=== PATIENT | female | born 1960 | race Caucasian/White ===

== ENCOUNTER 2024-02-18 09:52 | Outpatient (CLI) | payer OTHER, SELFPAY ==
--- NOTE | 2024-02-18 10:15 | MR_ITS ---
[facility] [address] [facility] [address] Phone:?[phone] Fax:?[phone] Referring Physician Information: Jay Grimes M.D. [address] [place] [address] Phone:?[phone] Fax:?[phone] Patient:Cydney Santizo D.O.B:?1960 Sex:?Female Phone:?[phone] [facility] MRN:?[id number] Exam Date:?02/18/2024 EXAM: MRI of the LEFT KNEE, without contrast CLINICAL INFORMATION: Female, 63 years old, with knee pain INDICATION: Evaluate meniscus tear PRIOR SURGERY: History of prior surgery, date unspecified. PLAIN FILMS: Radiographs 02/16/2024. COMPARISONS: Knee MRI 12/13/2019. TECHNICAL INFORMATION: Using a 1.5T MR scanner and a localizing surface coil: sagittals: PD, PDFS coronals: PD, T2FS axials: PD, PDFS SEDATION: None CONTRAST: None FINDINGS: Knee joint: Effusion: Moderate sized left knee effusion. Popliteal cyst: Trace popliteal cyst Loose bodies: None. Subcutaneous and extra-articular soft tissues: Linear region of low signal overlying the distal patellar tendon approximately 6 to the tibial tubercle attachment (sagittal series 5 image 21), in keeping with fibrosis/scarring in the region of previously seen bursitis. Ligaments: ACL: The ACL appears diffusely thickened and heterogeneous with intrasubstance ganglion, new from the prior exam. PCL: Intact PCL, without acute or chronic injury. MCL: Intact MCL superficial and deep layers, without injury. LCL: Intact LCL, without injury. Posterolateral corner: No posterolateral corner soft tissue injury. Popliteus, biceps femoris, iliotibial band, popliteofibular ligament and lateral gastrocnemius are intact. Posteromedial corner: No posteromedial corner soft tissue injury. Semimembranosus, pes anserine tendons and posterior oblique ligament are without injury, tendinopathy or bursitis. Extensor mechanism: Patellar tendon: Intact, without tendinopathy. Quadriceps tendon: Intact, without tendinopathy. Retinacula: Medial and lateral retinacula are intact. Fat pads: Unremarkable infrapatellar Hoffa's, quadriceps and prefemoral fat pads. Medial compartment: Medial meniscus: Medial meniscus is abnormal in appearance. There is diminutive appearance of the body and posterior horn which is overall unchanged from the prior exam. No convincing evidence for recurrent meniscal tearing. Medial femoral condyle: There is grade III/IV chondromalacia along the central to posterior weightbearing medial femoral condyle which is progressed compared to the prior exam. Mild peripheral osteophytosis. Medial tibial plateau: Grade 2 chondral thinning at the periphery of the central medial tibial plateau with mild peripheral osteophytosis. This is overall similar in appearance. Lateral compartment: Lateral meniscus: No articular surface, meniscosynovial junction or root tear. No displacement, extrusion or parameniscal cyst. Lateral femoral condyle: Grade II chondromalacia and heterogeneity along the central and posterior lateral tibial plateau. 6 mm region of grade III chondromalacia posteriorly is slightly increased in size. Lateral tibial plateau: Grade I/II chondral heterogeneity with focal full- thickness fissure along the central lateral tibial plateau without underlying marrow reactive edema (coronal series 8 image 20). This is compared to prior. Patellofemoral joint: Patella: Grade II chondromalacia along the central median ridge and lateral patellar facet. Moderate inferior central patellar osteophytosis is increased in size. Trochlea: Grade III/IV chondromalacia of the medial and lateral trochlea is mildly progressed from prior, without significant subchondral cystic change or marrow edema. Proximal tibiofibular joint: Unremarkable, without evidence of ligament sprain injury, joint effusion or adjacent marrow edema. Bones: No stress/occult fractures or other marrow edema/pathology. IMPRESSION: 1. Diminutive appearance of the body and posterior horn of the medial meniscus, consistent with postsurgical changes is unchanged from the prior exam. No convincing evidence for recurrent medial meniscal tearing. 2. Moderate size region of grade III/IV chondromalacia of the trochlear articular cartilage is mildly progressed. Grade 2 chondral thinning of the central and lateral patella. 3. Relatively broad-based grade III/IV chondromalacia along the central posterior medial femoral condyle is progressed compared to prior. Mild chondral thinning at the periphery of the medial tibial plateau. 4. Mild lateral compartment chondromalacia. 5. Findings in keeping with mucoid degeneration versus chronic incomplete sprain injury of the ACL, new from prior. No acute cruciate or collateral ligament pathology. 6. Moderate size knee joint effusion. KME Electronically signed on 02/18/2024 8:25:00 PM by Ivory Hoffmann M.D.
== END 2024-02-18 09:53 | disposition home or self-care (01) ==
LOC: MRI 09:54
PROVIDERS: Visit Provider Orthopaedic Surgery
DX: M25.562 Pain in left knee (principal); M22.42 Chondromalacia patellae, left knee; M94.262 Chondromalacia, left knee; S83.512A Sprain of anterior cruciate ligament of left knee, initial encounter
CPT/HCPCS: 73721

== ENCOUNTER 2025-06-29 12:25 | Outpatient (CLI) | payer MEDICARE, BC, SELFPAY ==
[2025-06-29 12:32] VITALS: BP 145/77; PULSE 70; RESP 16; TEMP 36.7; O2SAT 96
[2025-06-29 12:44] VITALS: BP 148/83
--- NOTE | 2025-06-29 13:05 | PM.PROC ---
Procedure Note Time Seen by Provider: 13:10 Date Seen: 06/29/25 Provider Contact Time: 14:00 Date of procedure: 06/29/25 Will [facility] bill your pro fee for this procedure?: Yes Procedure: CRYONEUROLYSIS TREATMENT REPORT REFERRING PROVIDER: Jitendra Grimes TREATMENT PROVIDER: Daniel Bell PREOPERATIVE DIAGNOSIS: Left knee osteoarthritis POSTOPERATIVE DIAGNOSIS: Left knee osteoarthritis? PROCEDURE: Cryoneurolysis of Multiple Sensory Nerves of the Knee ANESTHESIA: Local INDICATIONS: The patient is a very pleasant 65-year-old female patient with primary osteoarthritis involving the left/right knee who presents today for cryoneurolysis of multiple sensory nerves to the knee for severe knee pain.?Patient medical history was reviewed. The risks, benefits, treatment alternatives, and complications were discussed with the patient, including but not limited to bleeding, infection, nerve or tissue damage.?Informed consent was obtained. ? PRE-TREATMENT MOTOR ASSESSMENT/PAIN SCORE: Patient was able to demonstrate intact gross motor function with plantarflexion, dorsiflexion, adduction, abduction, hip flexion, and extension of the lower extremity.?Pre-treatment pain score of 8 out of 10 in the left knee. DESCRIPTION OF PROCEDURE: After obtaining informed consent, the patient was brought back to the treatment room and positioned supine on the table.?The left lower extremity was prepped with Chlorhexadine.?We began the procedure by performing our procedural pause.?Once this was completed and verified to be accurate, I began the procedure by identifying the nerves with the use of bedside ultrasound.?After the nerves were identified, the skin was marked and, using 1% lidocaine plain, the area of the nerves were anesthetized. ? After the anesthetic was administered, the Smart Tip 2190 cryoneurolysis needle was inserted into the treatment sites using ultrasound guidance.?Treatment was then initiated on the left lower extremity with the following nerves treated: Superior, superior medial, superior lateral, inferior medial genicular nerves and the infrapatellar branch of the saphenous nerve. At the termination of the treatment, the cryoneurolysis needle was removed with the patient's skin cleansed and Band-Aids and compression dressing applied. Patient tolerated the procedure without any incident or concern.? Patient was then instructed to stand, mobilize the joint, and was examined to ensure gross motor skills were intact. COMPLICATIONS: None POST-TREATMENT PAIN SCORE: 1 out of 10 in the left knee DISPOSITION: Discharge instructions were given to the patient with education on the post-procedure expectations. Patient was instructed to call the Ortho clinic with any post-procedure concerns or questions.
[2025-06-29 14:16] VITALS: BP 162/87; PULSE 66; RESP 16; O2SAT 99
== END 2025-06-29 14:20 | disposition home or self-care (01) ==
LOC: OP CLINIC 12:26
PROVIDERS: PCP Family Medicine; Visit Provider Nurse Anesthetist, Certified Registered
DX: M17.12 Unilateral primary osteoarthritis, left knee (principal)
CPT/HCPCS: 64640; 76942; C9809

== ENCOUNTER 2025-07-05 06:57 | Day surgery (SDC) | payer MEDICARE, BC, SELFPAY ==
[2025-07-05] VITALS (31 sets, daily range): BP systolic 77–187; BP diastolic 44–99; PULSE 27–98; RESP 8–16; TEMP 36.2–36.9; O2SAT 88–100; BMI 42.8
[2025-07-05] MEDS: LACTATED RINGERS 1000 ML 1,000 ML 100 ML IV ×4 (07:28→15:45)
[2025-07-05] MEDS: OXYCODONE (CR) 10 MG TAB.ER.12H PO (07:29)
[2025-07-05] MEDS: CELECOXIB 200 MG CAPSULE PO (07:29)
[2025-07-05] MEDS: SODIUM CHLORIDE 0.9 % (FLUSH) 10 ML SYRINGE IVF (07:29)
--- NOTE | 2025-07-05 07:38 | W.PM.H&PU ---
History & Physical Update History & Physical Update H&P Reviewed and patient assessed: No changes noted
[2025-07-05] MEDS: MIDAZOLAM HCL 1 MG/ML inj IVP (08:03)
[2025-07-05] MEDS: SCOPOLAMINE 1 MG/3 DAY PATCH 1 PATCH TRANSDERMA (08:10)
--- NOTE | 2025-07-05 08:13 | SUR.PREOP ---
TIME?OUT:?0803 PT/RN/MDA?VERIFICATION?OF?SURGICAL?SITE,?PROCEDURE,?AND?CONSENT OBTAINED?PRIOR?TO?INVASIVE?PROCEDURE.
--- NOTE | 2025-07-05 08:39 | PM.ORPRC ---
Procedure Note Date of procedure: 07/05/25 Procedure: PREOPERATIVE DIAGNOSIS: 1. Left knee osteoarthritis POSTOPERATIVE DIAGNOSES: 1. Left knee osteoarthritis PROCEDURE: 1. Left total knee arthroplasty SURGEON: Vikas Ramos MD FOOD PROCESSING PLANT MANAGER: Fred Fall A skilled back office medical assistant was critical for this case to aid in patient positioning, tissue retraction, bone exposure, limb manipulation/positioning, patient safety, and wound closure. ANESTHESIA: Spinal with adductor canal and genicular nerve blocks IMPLANTS: DePuy Attune (Cementless, Press-Fit, Posterior Stabilized, Rotating Platform): Femoral posterior stabilized component size 5; Tibial Base Rotating Platform size 5; DePuy Attune Tibial Insert Rotating Platform Posterior Stabilized size 5, 5 mm; and Attune patella medialized dome size 35 mm. EBL: 200 ml TOURNIQUET TIME: 57 minutes at 250 mmHg COMPLICATIONS: None evident INDICATIONS: Charito is a 65-year-old female who has chronic left knee pain secondary to osteoarthritis. Symptoms have worsened despite non operative treatment. Patient is now interested in proceeding with total knee arthroplasty for improved function, decreased pain and better quality of life. Prior to the procedure, the risks and benefits of operative and non operative treatment were discussed with the patient. After discussion of risks, benefits, and alternatives of surgery, informed consent was obtained and the operative site was marked. FINDINGS: Grade 4 chondromalacia medial femoral condyle, trochlea, and patella with eburnated bone of the patella. Grade 3 chondromalacia of the medial and lateral tibial plateaus and lateral femoral condyle. PROCEDURE: Patient was seen preoperatively and operative site was marked. Adductor canal and genicular nerve blocks were performed by anesthesia staff. Patient was then brought to the operating room, where spinal anesthesia was administered by the anesthesia staff. Patient was then placed into the supine position on the OR table and all bony prominences were well padded. 3 g IV Ancef and 1 g tranexamic acid were administered preoperatively. A tourniquet was placed on the thigh of the operative leg. The operative extremity was prepped and draped in usual sterile fashion. A surgical time-out was performed confirming patient identity, surgical procedure, and surgical site. Operative extremity was elevated and exsanguinated with an Esmarch and tourniquet was inflated to 250 mmHg. The tourniquet remained inflated for 57 minutes before it was deflated. An anterior longitudinal incision was made and carried down through the subcutaneous tissues. The quadriceps tendon, medial patellar retinaculum, and patellar tendon were visualized. A medial quadriceps splitting parapatellar arthrotomy was performed. The proximal medial tibia was subperiosteal exposed distal to the joint line. The retropatellar fat pad was excised. A curved osteotome was used to enter the semimembranous bursa medially at the level of the joint line. The knee was then flexed and patella everted. The medial meniscus was excised at the meniscal synovial junction. The anterior cruciate ligament was excised. A Z-retractor was placed medially and a right angle retractor was placed anterior lateral to the lateral meniscus. A partial lateral meniscectomy was performed. The intramedullary drill was utilized to open the intramedullary canal. Intramedullary alignment guide was inserted. The distal femoral cutting block, set at 5 degrees of valgus with a distal femoral resection of 11 mm, was secured with pins, and the distal femoral osteotomy was performed. Using the posterior condylar referencing guide, femur was sized to a size 5, and pins were drilled for 3 degrees of external rotation, which corresponded with Whitesides line and the epicondylar axis. A 4-in-1 cutting jig was inserted at 3 degrees of external rotation. The anterior and posterior condylar cuts were performed followed by anterior and posterior chamfer cuts. The box cutting guide was then secured to the distal femur with pins and the box osteotomy was performed. We then turned our attention back to the tibia. Ranasall maneuver was performed and remainder of the lateral meniscus, medial meniscus, and PCL were excised. A retractor was placed along the posterior tibia. Extramedullary guide was secured around the ankle in line with the subcutaneous tibial crest. The tibial cutting block, set to remove 4 mm of bone from medial tibial plateau and 9 mm of bone from lateral tibial plateau, was secured proximally with pins. Tibial osteotomy was performed with care taken to protect the collateral ligaments. Spacer blocks were inserted, which confirmed symmetric flexion and extension gaps. The tibia was then sized to a size 5, and tibial base plate was secured. Tibia was then prepped with the appropriate drill and punch. Trial femur and tibial components with a 5 mm tibial polyethylene component were inserted. The knee was then brought out to full extension. The patella was everted and osteochondral junction was exposed. The patella measured 22 mm in thickness. The patellar osteotomy was performed, leaving 14-15 mm of remnant patella. Three lug holes were drilled for the 35 mm patella button and the patella button was inserted. The knee was brought through a full range of motion. Soft tissue tension, collateral ligament stability, and patella tracking were confirmed to be satisfactory. Trial components were then removed. Tourniquet was then released. Total tourniquet time was 57 minutes. Hemostasis was achieved with electrocautery. Formal DePuy Attune uncemented, press-fit tibial and femoral components were then secured into position followed by the 5 mm rotating platform tibial insert. The Press-Fit 35 mm Attune patella component was then secured into position. Knee was again placed through full range of motion. Soft tissue tension, collateral ligament stability, and patellar tracking were again confirmed to be satisfactory. The knee was then soaked in a sterile iodine solution and soft tissues were irrigated with pulse lavage. The parapatellar arthrotomy was closed with #1 Vicryl [id number] interrupted sutures followed by a running #1 Stratafix suture. Subcutaneous soft tissues were again irrigated normal saline. Skin was closed with 2-0 Vicryl inverted, interrupted, subcutaneous stitches followed by running 2-0 Stratafix. The incision was then sealed with Dermabond and sterile dressing was applied. The patient was then transferred to the recovery room in stable condition. POSTOPERATIVE PLAN: 1. Patient will be discharged to home on day of surgery. 2. Mobilize with physical therapy prior to discharge. - Weight bear as tolerated right lower extremity. 3. Pain control: - Acetaminophen and Oxycodone for pain as needed. - Ice for pain and swelling. 4. DVT prophylaxis: - aspirin 81 mg b.i.d. for 35 days. 6. Follow-up in Orthopedic Clinic in 1-2 weeks.
--- NOTE | 2025-07-05 08:56 | P.NB_ITS ---
Nerve Block Nerve Block Time Seen by Provider: 08:05 Date Seen: 07/05/25 Type of block requested by surgeon for post-operative analgesia: adductor canal Side: left Time out performed: Yes Verification of patient name: Yes Verification of date of : Yes Site marking: site marked Name of person performing procedure: Ray Continuous monitoring Was continuous monitoring of O2 sat, B/P, awake overnight monitor, recorded every 15 minutes?: Yes Procedure Checklist: sterile prep, needles and gloves Ultrasound guided. Images saved: Yes Medications given in 5ml increments after negative aspiration: Marcaine %: 0.25 mL: 15 Needle gauge: 20 Precedex (mcg): 25 Patient tolerated procedure well: Yes Block Charges Block Charge (with Pro Fee): Femoral Nerve Use of Ultrasound Machine for Block: Yes- US Guidance/pain block
--- NOTE | 2025-07-05 08:57 | P.ANES_ITS ---
Anesthesia Charges Start Date/Time Anesthesia Start Date: 07/05/25 Anesthesia Start Time: 08:26 Stop Date/Time Anesthesia Stop Date: 07/05/25 Anesthesia Stop Time: 10:55 Coding CPT Codes CPT Codes: ANESTH KNEE ARTHROPLASTY - 37962 ([id number]) P3 - PATIENT W/SEVERE SYS DISEASE, QK - KNIFE GLAZER 2-4 CNCRNT ANES PROC, QX - CHANCERY CLERK SVC W/ MD MED DIRECTION
--- NOTE | 2025-07-05 08:57 | P.NB_ITS ---
Nerve Block Nerve Block Time Seen by Provider: 08:05 Date Seen: 07/05/25 Type of block requested by surgeon for post-operative analgesia: geniculars Side: left Time out performed: Yes Verification of patient name: Yes Verification of date of : Yes Site marking: site marked Name of person performing procedure: Ray Continuous monitoring Was continuous monitoring of O2 sat, B/P, residential monitor, recorded every 15 minutes?: Yes Procedure Checklist: sterile prep, needles and gloves Ultrasound guided. Images saved: Yes Medications given in 5ml increments after negative aspiration: Marcaine %: 0.25 mL: 9 Needle gauge: 25 Patient tolerated procedure well: Yes Block Charges Block Charge (with Pro Fee): Genicular Nerve Block
--- NOTE | 2025-07-05 08:57 | W.ANESCHARGE ---
Anesthesia Charges Start Date/Time Anesthesia Start Date: 07/05/25 Anesthesia Start Time: 08:26 Stop Date/Time Anesthesia Stop Date: 07/05/25 Anesthesia Stop Time: 10:55 Coding CPT Codes CPT Codes: ANESTH KNEE ARTHROPLASTY - 69951 ([id number]) P3 - PATIENT W/SEVERE SYS DISEASE, QK - INTERNET RESEARCHER 2-4 CNCRNT ANES PROC, QX - SOLE CONFORMING MACHINE OPERATOR SVC W/ MD MED DIRECTION
--- NOTE | 2025-07-05 10:25 | CRLHL7_ITS ---
For Patients: As a result of the Cures Act, medical imaging exams and procedure reports are released immediately into your electronic medical record. You may view this report before your referring provider. If you have questions, please contact your health care provider. Indication: TKA post op Technique: Two views left knee Findings/Impression: Hardware from a left total knee arthroplasty is in satisfactory position. Bone alignment is normal. No sign of acute fracture. Postop changes are within normal limits. Dictated by Rafael Hazel MD @ 07/05/2025 12:25:12 PM (Electronically Signed)
--- NOTE | 2025-07-05 11:02 | P.ANES_ITS ---
Anesthesia Charges Start Date/Time Anesthesia Start Date: 07/05/25 Anesthesia Start Time: 08:26 Stop Date/Time Anesthesia Stop Date: 07/05/25 Anesthesia Stop Time: 10:55 Coding CPT Codes CPT Codes: ANESTH KNEE ARTHROPLASTY - 06337 ([id number]) P3 - PATIENT W/SEVERE SYS DISEASE, QK - CHRISTIAN SCIENCE PRACTITIONER 2-4 CNCRNT ANES PROC
--- NOTE | 2025-07-05 11:02 | W.ANESCHARGE ---
Anesthesia Charges Start Date/Time Anesthesia Start Date: 07/05/25 Anesthesia Start Time: 08:26 Stop Date/Time Anesthesia Stop Date: 07/05/25 Anesthesia Stop Time: 10:55 Coding CPT Codes CPT Codes: ANESTH KNEE ARTHROPLASTY - 72117 ([id number]) P3 - PATIENT W/SEVERE SYS DISEASE, QK - WELFARE SERVICE AIDE 2-4 CNCRNT ANES PROC
--- NOTE | 2025-07-05 11:39 | SUR.PHASEI ---
At approximately 1115, patient had just finished post op xrays in PACU. Patient stated she wasn't feeling so well, patient then had a vasovagal episode. Anesthesia was called to bedside as her HR megan'd down to 27, then ECG stated asystole. Patient was sternal rubbed by anesthesia where she then came to within seconds of the episode. BP stayed stable the entire time. Medications administered per anesthesia, see anesthesia record. Patient states she is feeling much better and believes the movement from positioning for xray caused her to not feel well.
[2025-07-05] MEDS: ACETAMINOPHEN 500 MG TABLET 1000 MG PO ×2 (12:10→19:46)
--- NOTE | 2025-07-05 14:24 | SUR.PHASEII ---
Patient arrived to Phase II at 1151 with report from EXTERNAL GRINDER that pt had vasovagal episode while getting repositioned for Xrays at 1115 with HR 27. Anesthesia consulted during episode in PACU and administered Robinol and Atropine (see anesthesia record). Pt HR did return to baseline after this. 3 lead returned to NSR/sinus megan (see vitals). Pt requiring 02 while asleep d/t dropping 88-89% at rest, when awake and deep breaths 02 comes up to 99-100%. Pain reported 5/10 upon arrival to Phase II, pt had received fentanyl in PACU as well for this, tylenol given after some crackers. Anesthesia denied need for continuous cardiac monitoring at this time. pt continued to verbalize I just don't feel well. encouraged to rest, vitals remained stable while laying flat however upon sitting up in bed BP would drop. Scope patch removed at 1300 d/t c/o dizziness. pain increasing, ice changed out and oxycodone given at 1400. Discussed admission d/t PT scheduled at 1400 and patient unable to sit up. Pt verbalized understanding of plan, Dr. Ramos contacted for orders. Pt has 3rd bag of LR running at this time, tolerating water, crackers, and diet coke. dressing CDI. casie hugger gown on and warming. Plan for patient to go to M/S at 1530.
[2025-07-05] MEDS: ONDANSETRON 2 MG/ML inj 4 MG IVP (16:45)
[2025-07-05] MEDS: CEFAZOLIN 2 GM in 0.9 % SODIUM CHLORIDE Mini-bag 100 ML IVPB (17:19)
--- NOTE | 2025-07-05 18:25 | PM.IMCN1 ---
Date of Consult Consult date: 07/05/25 Requesting Physician: Orthopedics Primary Care Provider: Windy Ashford MD Consult Narrative Narrative: HOSPITALIST CONSULT Procedure: Left total knee arthroplasty SURGEON: Vikas Ramos MD ANESTHESIA: Spinal with adductor canal and genicular nerve blocks EBL: 200 ml TOURNIQUET TIME: 57 minutes at 250 mmHg COMPLICATIONS: None evident The hospital medicine team was asked by the orthopedic surgery team to manage the patient's post op dizziness, bradycardia. There have been no perioperative complications other than she didn't feel well and couldn't ambulate independently after surgery. I have updated and reviewed the active medical problems, past medical history, past surgical history, social history, allergies and medications in our electronic EMR. This includes a cross reference to care everywhere in [facility] and with [facility] databases. PHYSICAL EXAM: CODE STATUS: FULL CODE CONSTITUTIONAL: Conversive, good historian. A/O. Knows setting and context. VITAL SIGNS: see record. HEENT: Normocephalic, atraumatic. PERRL, EOMI, conjunctivae pink, no scleral icterus. Ears and nose externally normal. Pharynx normal. NECK: No JVD. No carotid bruit, no thyromegaly, no adenopathy. CHEST: Clear to auscultation bilaterally HEART: S1 and S2 normal. ABDOMEN: Flat, soft, nontender. Normal bowel sounds. Moderately obese. EXTREMITIES: No edema. MUSCULOSKELETAL: Left knee surgical dressing intact, dry, no obvious bleeding, hematoma. NEURO: Cranial nerves intact. Mentation normal. Normal affect. SKIN: No rashes, petechiae, concerning changes PSYCHIATRIC: Mentation normal. INVESTIGATIONS: EMR Reviewed; Pre-OP Reviewed DISPOSITION: DVT: Agree with Ortho team decision - asp bid x 35 days GI: PO intake PFSH PFSH Medical History (Updated 07/05/25 @ 18:29 by Karol Ramos MD) Osteoarthritis of right knee ?M17.11 - Unilateral primary osteoarthritis, right knee (ICD-10) Mixed hyperlipidemia ?E78.2 - Mixed hyperlipidemia (ICD-10) Primary osteoarthritis, right ankle and foot ?M19.071 - Primary osteoarthritis, right ankle and foot (ICD-10) Surgical History (Updated 07/05/25 @ 18:29 by Karol Ramos MD) History of left knee replacement (07/05/25) ?Z96.652 - Presence of left artificial knee joint (ICD-10) History of hysterectomy ?Z90.710 - Acquired absence of both cervix and uterus (ICD-10) History of arthroscopy of left knee (02/28/16) ?Z98.890 - Other specified postprocedural states (ICD-10) History of tonsillectomy ?Z90.89 - Acquired absence of other organs (ICD-10) History of section ?Z98.891 - History of uterine scar from previous surgery (ICD-10) Social History (Updated 02/16/24 @ 15:11 by Isabella Escalera ~ [facility], [facility]) Smoking Status: Former smoker What tobacco products do you use: cigarettes Smoking quit date/years: >15 years ago Do you use any of these nicotine containing products: None Second hand tobacco smoke exposure: No How often do you have a drink containing alcohol: 2-4 times a month How many standard drinks containing alcohol do you have on a typical day: 3 or 4 How often do you have six or more drinks on one occasion: Never AUDIT-C Alcohol total score: 3 Non-prescribed substance use: denies use Caffeine: Yes (coffee 3-4/day) Are you using contraception or practicing any form of control: No Meds Home Medications and Allergies Home Medications ?Medication ?Instructions ?Recorded ?Confirmed ?Type acetaminophen 500 mg capsule 500 - 1,000 mg (1 - 2 x 500 mg) PO 07/05/25 Rx Q6H PRN pain #60 caps aspirin 81 mg chewable tablet 81 mg PO BID DVT prevention 35 07/05/25 Rx days #70 tabs ondansetron 4 mg disintegrating 4 mg PO Q8H PRN nausea and 07/05/25 Rx tablet vomiting #15 tabs oxycodone 5 mg tablet 2.5 - 5 mg (0.5 - 1 x 5 mg) PO Q4H 07/05/25 Rx PRN pain #40 tabs sennosides 8.6 mg-docusate sodium 1 tab-cap PO BID PRN constipation 07/05/25 Rx 50 mg tablet (Senna-S) #60 tabs Allergies Allergy/AdvReac Type Severity Reaction Status Date / Time amoxicillin Allergy Unknown Verified 07/05/25 07:19 doxycycline Allergy Rash Verified 07/05/25 07:19 Exam Const: Vital Signs, click to edit/add: Vital Signs - 24 hr 07/05/25 07:30 07/05/25 08:03 07/05/25 08:05 Temperature 97.9 F 97.9 F Pulse Rate 72 72 64 Respiratory Rate 16 16 16 Blood Pressure 187/99 H 187/99 H 170/74 H Pulse Oximetry 96 96 97 Oxygen Delivery Me thod Nasal Cannula Oxygen Flow Rate 2 07/05/25 08:15 07/05/25 10:50 07/05/25 10:55 Temperature 98 F Pulse Rate 64 73 62 Respiratory Rate 16 16 16 Blood Pressure 119/79 77/44 L 78/51 L Pulse Oximetry 97 96 95 Oxygen Delivery Me thod Nasal Cannula Room Air Room Air Oxygen Flow Rate 2 07/05/25 11:00 07/05/25 11:15 07/05/25 11:20 Temperature 98 F Pulse Rate 62 27 L 73 Respiratory Rate 16 8 L 12 Blood Pressure 90/55 L 120/98 H 110/78 Pulse Oximetry 95 88 95 Oxygen Delivery Me thod Room Air OxyMask OxyMask Oxygen Flow Rate 10 10 07/05/25 11:25 07/05/25 11:30 07/05/25 11:35 Temperature 98.1 F Pulse Rate 64 68 65 Respiratory Rate 14 14 16 Blood Pressure 118/72 110/73 111/74 Pulse Oximetry 96 99 99 Oxygen Delivery Me thod OxyMask OxyMask Room Air Oxygen Flow Rate 10 10 07/05/25 11:45 07/05/25 11:51 07/05/25 12:00 Temperature 97.1 F L Pulse Rate 70 71 69 Respiratory Rate 16 16 16 Blood Pressure 113/69 116/71 121/93 H Pulse Oximetry 100 94 94 Oxygen Delivery Me thod Nasal Cannula Nasal Cannula Nasal Cannula Oxygen Flow Rate 3 0 0 07/05/25 12:15 07/05/25 12:30 07/05/25 12:43 Temperature Pulse Rate 61 61 61 Respiratory Rate 16 16 16 Blood Pressure 115/75 121/70 119/76 Pulse Oximetry 100 98 100 Oxygen Delivery Me thod Nasal Cannula Nasal Cannula Nasal Cannula Oxygen Flow Rate 0 0 0 07/05/25 13:30 07/05/25 14:00 07/05/25 15:00 Temperature 97.1 F L Pulse Rate 58 L 61 58 L Respiratory Rate 16 16 16 Blood Pressure 101/67 104/67 113/68 Pulse Oximetry 96 96 96 Oxygen Delivery Me thod Nasal Cannula Nasal Cannula Nasal Cannula Oxygen Flow Rate 0 0 0 07/05/25 15:30 Temperature Pulse Rate 58 L Respiratory Rate 16 Blood Pressure 100/67 Pulse Oximetry 96 Oxygen Delivery Me thod Nasal Cannula Oxygen Flow Rate 0 Assessment and Plan Assessment and plan (1) History of left knee replacement: Problem comment: Left total knee arthroplasty. Dr. Ramos, 07/05/25 Status: Acute (2) Postoperative bradycardia: Problem comment: -resolved by the time she arrived to the floor. EKG shows sinus at 66 bpm -will place on telemetry -will check orthostatic vital signs -anticipate routine care and discharge in the morning Status: Acute
[2025-07-05] MEDS: LACTATED RINGERS 1000 ML 1,000 ML 75 ML IV (19:41)
[2025-07-05] MEDS: ASPIRIN 81 MG TABLET EC PO (21:43)
[2025-07-05] MEDS: SENNOSIDES 1 TAB TABLET 2 TAB PO (21:43)
--- NOTE | 2025-07-05 23:29 | PC.NURSE ---
End of Shift: Patient from SDS approx 1600. Patient pleasant and cooperative. Afebrile. Dressing to left knee C/D/I. CMS intact. Rating pain up to 8/10 and PRN Dilaudid given x1 and oxycodone x2. Patient up to BSC with 2 assist, walker and gait belt. Orthostatic BP done and updated MD. Tolerating regular diet with no nausea.
[2025-07-06] MEDS: CEFAZOLIN 2 GM in 0.9 % SODIUM CHLORIDE Mini-bag 100 ML IVPB (00:14)
[2025-07-06] MEDS: ACETAMINOPHEN 500 MG TABLET 1000 MG PO ×2 (01:10→06:54)
[2025-07-06 03:33] VITALS: BP 107/58; PULSE 77; RESP 16; TEMP 36.8; O2SAT 95
[2025-07-06 04:54] VITALS: PULSE 69
--- NOTE | 2025-07-06 06:41 | PC.NURSE ---
shift note: Pt is AOx4. Pt is on LR fluids. Pt is tolerating regular diet, denies N/V. Pt up to BR to void w/ RN x2. Pt pain reported between 5-03/03, pain meds given-- see EMAR. Active ice applied. SCDs on L foot ; removed for break- skin intact. Pt pleasant & cooperative w/ cares and encouragement to move. L surgical site dressing C/D/I. Noted bruising and swelling around area.
--- NOTE | 2025-07-06 06:50 | P.ORPN_ITS ---
Subjective Subjective Time Seen by Provider: 07:00 Date Seen: 07/06/25 Principal diagnosis: Day 1 s/p left total knee arthroplasty (07/05/25, Dr. Ramos) Interval history: Charito is doing well this morning and is resting comfortably in bed. Overnight she struggled with pain management and difficulty sleeping, but this improved around 4am. Her pain is well managed with icing, acetaminophen and oxycodone PRN. Denies: fever, chills, chest pain, SOB, nausea, vomiting, numbness and tingling distally. Patient has not yet had a bowel movement, but admits to flatulence. Outpatient Physical Therapy is scheduled to begin Friday at [facility]. Ortho Exam Narrative Exam Narrative: Incision/Dressing: Dressing appears clean and dry. No drainage present. Mepilex intact. Left knee appears moderately swollen but supple with no obvious erythema, fluctuance or excessive warmth. No ecchymosis or erythematous streaking. Warmth around the wound is appropriate. Ice is being utilized as needed. CMS: Intact distally with 2+ Dorsalis pedis and Posterior Tibial pulses. Sensation intact distally. Calf: Left calf is supple, with no swelling, pain, tenderness, erythema, discoloration or coolness to the touch. Constitutional: Patient is alert and oriented x3. Patient is in no acute distress and converses without labored breathing. Patient is able to make decisions and demonstrates good insight. Patient is pleasant and cooperative. Affect is full range and appropriate for the circumstances Const Vital Signs, click to edit/add: Vital Signs - 24 hr 07/05/25 07:30 07/05/25 08:03 07/05/25 08:05 Temperature 97.9 F 97.9 F Pulse Rate 72 72 64 Pulse Rate [Pulse Oximeter] Pulse Rate [orthostatic lying Pulse Oximeter] Pulse Rate [orthostatic standing Pulse Oximeter] Respiratory Rate 16 16 16 Blood Pressure 187/99 H 187/99 H 170/74 H Blood Pressure [Left Arm] Blood Pressure [Right Arm] Blood Pressure [orthostatic lying Left Arm] Blood Pressure [orthostatic standing Left Arm] Pulse Oximetry 96 96 97 Oxygen Delivery Method Nasal Cannula Oxygen Flow Rate 2 07/05/25 08:15 07/05/25 10:50 07/05/25 10:55 Temperature 98 F Pulse Rate 64 73 62 Pulse Rate [Pulse Oximeter] Pulse Rate [orthostatic lying Pulse Oximeter] Pulse Rate [orthostatic standing Pulse Oximeter] Respiratory Rate 16 16 16 Blood Pressure 119/79 77/44 L 78/51 L Blood Pressure [Left Arm] Blood Pressure [Right Arm] Blood Pressure [orthostatic lying Left Arm] Blood Pressure [orthostatic standing Left Arm] Pulse Oximetry 97 96 95 Oxygen Delivery Method Nasal Cannula Room Air Room Air Oxygen Flow Rate 2 07/05/25 11:00 07/05/25 11:15 07/05/25 11:20 Temperature 98 F Pulse Rate 62 27 L 73 Pulse Rate [Pulse Oximeter] Pulse Rate [orthostatic lying Pulse Oximeter] Pulse Rate [orthostatic standing Pulse Oximeter] Respiratory Rate 16 8 L 12 Blood Pressure 90/55 L 120/98 H 110/78 Blood Pressure [Left Arm] Blood Pressure [Right Arm] Blood Pressure [orthostatic lying Left Arm] Blood Pressure [orthostatic standing Left Arm] Pulse Oximetry 95 88 95 Oxygen Delivery Method Room Air OxyMask OxyMask Oxygen Flow Rate 10 10 07/05/25 11:25 07/05/25 11:30 07/05/25 11:35 Temperature 98.1 F Pulse Rate 64 68 65 Pulse Rate [Pulse Oximeter] Pulse Rate [orthostatic lying Pulse Oximeter] Pulse Rate [orthostatic standing Pulse Oximeter] Respiratory Rate 14 14 16 Blood Pressure 118/72 110/73 111/74 Blood Pressure [Left Arm] Blood Pressure [Right Arm] Blood Pressure [orthostatic lying Left Arm] Blood Pressure [orthostatic standing Left Arm] Pulse Oximetry 96 99 99 Oxygen Delivery Method OxyMask OxyMask Room Air Oxygen Flow Rate 10 10 07/05/25 11:45 07/05/25 11:51 07/05/25 12:00 Temperature 97.1 F L Pulse Rate 70 71 69 Pulse Rate [Pulse Oximeter] Pulse Rate [orthostatic lying Pulse Oximeter] Pulse Rate [orthostatic standing Pulse Oximeter] Respiratory Rate 16 16 16 Blood Pressure 113/69 116/71 121/93 H Blood Pressure [Left Arm] Blood Pressure [Right Arm] Blood Pressure [orthostatic lying Left Arm] Blood Pressure [orthostatic standing Left Arm] Pulse Oximetry 100 94 94 Oxygen Delivery Method Nasal Cannula Nasal Cannula Nasal Cannula Oxygen Flow Rate 3 0 0 07/05/25 12:15 07/05/25 12:30 07/05/25 12:43 Temperature Pulse Rate 61 61 61 Pulse Rate [Pulse Oximeter] Pulse Rate [orthostatic lying Pulse Oximeter] Pulse Rate [orthostatic standing Pulse Oximeter] Respiratory Rate 16 16 16 Blood Pressure 115/75 121/70 119/76 Blood Pressure [Left Arm] Blood Pressure [Right Arm] Blood Pressure [orthostatic lying Left Arm] Blood Pressure [orthostatic standing Left Arm] Pulse Oximetry 100 98 100 Oxygen Delivery Method Nasal Cannula Nasal Cannula Nasal Cannula Oxygen Flow Rate 0 0 0 07/05/25 13:30 07/05/25 14:00 07/05/25 15:00 Temperature 97.1 F L Pulse Rate 58 L 61 58 L Pulse Rate [Pulse Oximeter] Pulse Rate [orthostatic lying Pulse Oximeter] Pulse Rate [orthostatic standing Pulse Oximeter] Respiratory Rate 16 16 16 Blood Pressure 101/67 104/67 113/68 Blood Pressure [Left Arm] Blood Pressure [Right Arm] Blood Pressure [orthostatic lying Left Arm] Blood Pressure [orthostatic standing Left Arm] Pulse Oximetry 96 96 96 Oxygen Delivery Method Nasal Cannula Nasal Cannula Nasal Cannula Oxygen Flow Rate 0 0 0 07/05/25 15:30 07/05/25 16:00 07/05/25 16:40 Temperature 98.0 F Pulse Rate 58 L 64 Pulse Rate [Pulse Oximeter] 64 Pulse Rate [orthostatic lying Pulse Oximeter] Pulse Rate [orthostatic standing Pulse Oximeter] Respiratory Rate 16 16 Blood Pressure 100/67 Blood Pressure [Left Arm] Blood Pressure [Right Arm] 134/79 Blood Pressure [orthostatic lying Left Arm] Blood Pressure [orthostatic standing Left Arm] Pulse Oximetry 96 100 Oxygen Delivery Method Nasal Cannula Room Air Oxygen Flow Rate 0 07/05/25 17:00 07/05/25 17:18 07/05/25 18:00 Temperature 98.2 F Pulse Rate Pulse Rate [Pulse Oximeter] 68 67 Pulse Rate [orthostatic lying Pulse Oximeter] 71 Pulse Rate [orthostatic standing Pulse Oximeter] 98 Respiratory Rate 16 16 Blood Pressure Blood Pressure [Left Arm] Blood Pressure [Right Arm] 137/82 126/81 Blood Pressure [orthostatic lying Left Arm] 122/65 Blood Pressure [orthostatic standing Left Arm] 99/72 Pulse Oximetry 98 97 Oxygen Delivery Method Room Air Room Air Oxygen Flow Rate 07/05/25 19:00 07/05/25 21:45 07/05/25 23:25 Temperature 98.5 F Pulse Rate Pulse Rate [Pulse Oximeter] 71 Pulse Rate [orthostatic lying Pulse Oximeter] Pulse Rate [orthostatic standing Pulse Oximeter] Respiratory Rate 16 16 Blood Pressure Blood Pressure [Left Arm] 122/65 116/61 Blood Pressure [Right Arm] Blood Pressure [orthostatic lying Left Arm] Blood Pressure [orthostatic standing Left Arm] Pulse Oximetry 97 95 Oxygen Delivery Method Room Air Room Air Oxygen Flow Rate 0 07/05/25 23:33 07/06/25 03:33 07/06/25 04:54 Temperature 98.5 F 98.3 F Pulse Rate 69 Pulse Rate [Pulse Oximeter] 66 77 Pulse Rate [orthostatic lying Pulse Oximeter] Pulse Rate [orthostatic standing Pulse Oximeter] Respiratory Rate 16 16 Blood Pressure Blood Pressure [Left Arm] 107/53 L 107/58 L Blood Pressure [Right Arm] Blood Pressure [orthostatic lying Left Arm] Blood Pressure [orthostatic standing Left Arm] Pulse Oximetry 96 95 Oxygen Delivery Method Room Air Room Air Oxygen Flow Rate Assessment and Plan Assessment and plan (1) History of left knee replacement: Problem details: Left total knee arthroplasty. Dr. Ramos, 07/05/25 Status: Acute Assessment and Plan: - Complete 23 hour perioperative antibiotics. - PT/OT consults for education and assistance. Outpatient Physical Therapy is scheduled to begin this Friday at [facility]. - Weight bear as tolerated with a walker for assistance. - Prescribed analgesics as needed. Patient is content with current narcotic medications. Minimize narcotic pain medication use; wean off and discontinue as soon as possible. - DVT prophylaxis: aspirin 81 mg BID x 35 days. Also, frequent ambulation and ankle pumps when sedentary. - Social consult for discharge planning. - Anticipate patient will be discharged to home later today if the patient remains medically stable, pain is controlled and is safe with ambulation. - Return to clinic in 1 week for a wound check. Mepilex dressing will be removed at this appointment. Remove sooner if dressing becomes saturated. Dressing is waterproof. May shower. - Return to clinic in [address] Ramos - Phone Orthopedics with any questions or concerns. [phone]
[2025-07-06 07:00] VITALS: PULSE 63
[2025-07-06 08:00] VITALS: BP 123/54; PULSE 77; RESP 18; TEMP 36.6; O2SAT 95
[2025-07-06] MEDS: ASPIRIN 81 MG TABLET EC PO (08:17)
[2025-07-06] MEDS: SENNOSIDES 1 TAB TABLET 2 TAB PO (08:17)
[2025-07-06] MEDS: CELECOXIB 200 MG CAPSULE PO (08:18)
[2025-07-06] MEDS: ONDANSETRON ODT 4 MG TAB PO (11:50)
--- NOTE | 2025-07-06 12:43 | PC.NURSE ---
The patient discharged home with S/O this AM. The patient had an episode of clamminess and felt overall gross during physical therapy this AM, Ortho PA was contacted regarding this. The surgeon ended up coming ot talk with the patient. L leg has 2+ edema, the patient reported moderate to severe pain this AM, with PRN medications and scheduled medications the patients pain was brought down to a moderate level. Ice to the knee as well. All discharge instructions were covered. All belongings were sent home with the patient. Shayy VICTORIA BSN
== END 2025-07-06 11:45 | disposition home or self-care (01) ==
LOC: OR 06:59 → MEDSURG 16:28
PROVIDERS: PCP Family Medicine; Visit Provider Orthopaedic Surgery
PROC: (CPT 27447; principal; 2025-07-05 08:15)
DX: M17.12 Unilateral primary osteoarthritis, left knee (principal); G89.18 Other acute postprocedural pain; M94.262 Chondromalacia, left knee; G89.29 Other chronic pain; I97.191 Other postprocedural cardiac functional disturbances following other surgery; R42 Dizziness and giddiness; R00.1 Bradycardia, unspecified; E78.2 Mixed hyperlipidemia
CPT/HCPCS: 27447; 01402; 64447; 64454; 73560; 76942; 85025; 93005; 97110; 97116; 97162; 97165; 97530; 97535; A4314; A9270; C1713; C1776; J0461; J0665; J0690; J1171; J2250; J2405; J2704; J3010; J7120